=== PATIENT | female | born 1970 | race Caucasian/White ===

== ENCOUNTER 2018-12-18 23:14 | Emergency (ER) | payer OTHER ==
[~2018-12-18] VITALS: Ht 165.1 cm; Wt 54.4 kg
--- NOTE | 2018-12-18 23:32 | NUR ---
Female rn anesthesiology, Sandy Mcgrath RN sup, accompanied Dr. Lira for female patient pelvic exam.
[2018-12-18] MEDS ORDERED: ONDANSETRON ODT 4 MG TAB.RAPDIS SL ONE (23:45)
[2018-12-18] MEDS ORDERED: OXYCODONE/APAP 5-325 MG TABLET PO ONE (23:45)
[2018-12-18] MEDS ORDERED: ONDANSETRON ODT 4 MG TAB.RAPDIS ONE (23:46)
[2018-12-18] MEDS ORDERED: OXYCODONE/APAP 5-325 MG TABLET ONE (23:47)
[2018-12-19] MEDS ORDERED: AZITHROMYCIN 250 MG TABLET PO ONE
[2018-12-19] MEDS ORDERED: AZITHROMYCIN 250 MG TABLET ONE (00:03)
[2018-12-19 00:40] LABS: *BILIRUBIN,URIN NEGATIVE (NEGATIVE); *BLOOD, URINE 2+ (NEGATIVE); *CLARITY,URINE CLEAR (CLEAR); *COLOR,URINE YELLOW (YELLOW); *KETONES,URINE NEGATIVE (NEGATIVE); LEUKOCYTE ESTERASE ,URINE NEGATIVE (NEGATIVE); NITRITE, URINE NEGATIVE (NEGATIVE); PH,URINE 6.5 (5.0-8.0); UGLUCOSE NEGATIVE (NEGATIVE)
[2018-12-19 00:41] LABS: BACTERIA,URINE NONE SEEN /HPF (NONE SEEN); WBC,URINE 0-3 /HPF (0-3)
[2018-12-19 00:42] LABS: *URINE HCG, QUAL NEGATIVE (NEGATIVE); SQUAMOUS EPITHELIAL CELL,UR FEW /HPF (NONE SEEN); URINE AMORPHOUS URATE FEW /HPF
--- NOTE | 2018-12-19 00:50 | NUR ---
Patient discharged to home in stable conditon. Written and verbal after care instructions given. Patient verbalizes understanding of instructions. Patient ambulated with stable gait.
[2018-12-19 00:52] VITALS: BP 112/75
== END 2018-12-19 01:19 | disposition home or self-care (01) ==
LOC: ER 23:14
DX: R10.2 Pelvic and perineal pain (principal); N34.2 Other urethritis; F17.290 Nicotine dependence, other tobacco product, uncomplicated; F12.10 Cannabis abuse, uncomplicated; Z71.6 Tobacco abuse counseling
CPT/HCPCS: 84703; 87210; A4663; Q0144; Q0162

== ENCOUNTER 2019-03-29 15:40 | Emergency (ER) | payer OTHER ==
[~2019-03-29] VITALS: Ht 165.1 cm; Wt 56.7 kg
[2019-03-29] MEDS ORDERED: MORPHINE SULFATE 2 MG/1 ML DISP.SYRIN IV ONE (16:30)
[2019-03-29] MEDS ORDERED: KETOROLAC TROMETHAMINE 30 MG INJ IVP ONE (16:30)
[2019-03-29] MEDS ORDERED: IV NORMAL SALINE 1000 ML BAG IV ONE (16:30)
[2019-03-29] MEDS ORDERED: MORPHINE SULFATE 2 MG/1 ML DISP.SYRIN ONE (16:37)
[2019-03-29] MEDS ORDERED: KETOROLAC TROMETHAMINE 30 MG INJ ONE (16:37)
[2019-03-29 16:44] LABS: *BILIRUBIN,URIN NEGATIVE (NEGATIVE); *BLOOD, URINE NEGATIVE (NEGATIVE); *COLOR,URINE YELLOW (YELLOW); *KETONES,URINE NEGATIVE (NEGATIVE); LEUKOCYTE ESTERASE ,URINE 2+ (NEGATIVE); NITRITE, URINE NEGATIVE (NEGATIVE); UGLUCOSE NEGATIVE (NEGATIVE)
[2019-03-29 16:45] LABS: *URINE HCG, QUAL NEGATIVE (NEGATIVE); BASOPHILS # (AUTO) 0.1 K/uL (0.0-8.0); BASOPHILS % (AUTO) 0.6 % (0.0-2.0); EOSINOPHILS # (AUTO) 0.2 K/uL (0.0-0.7); EOSINOPHILS % (AUTO) 1.4 % (0.0-7.0); HEMATOCRIT 41.7 % (31.2-41.9); LYMPHOCYTES # (AUTO) 2.2 K/uL (20.0-40.0); LYMPHOCYTES % (AUTO) 18.3 % (20.5-51.5); MEAN CORPUSCULAR HEMOGLOBIN 30.7 uug (24.7-32.8); MEAN CORPUSCULAR HGB CONC 34 g/dL (32.3-35.6); MEAN CORPUSCULAR VOLUME 91.4 fL (75.5-95.3); MONOCYTES # (AUTO) 1.4 K/uL (2.0-10.0); MONOCYTES % (AUTO) 11.9 % (0.0-11.0); NEUTROPHILS # (AUTO) 8.2 K/uL (1.8-8.9); NEUTROPHILS % (AUTO) 67.8 % (38.5-71.5); PLATELET COUNT (AUTO) 268 K/uL (179-408); RED BLOOD CELL COUNT(AUTO) 4.57 MIL/uL (3.63-4.92)
[2019-03-29 16:48] LABS: *CLARITY,URINE HAZY (CLEAR)
[2019-03-29 16:59] LABS: CREATININE 0.7 mg/dL (0.6-1.3); POTASSIUM 3.6 mmol/L (3.5-5.1)
[2019-03-29 17:05] LABS: BILIRUBIN,DIRECT 0.2 mg/dL (0.0-0.2); BILIRUBIN,TOTAL 0.6 mg/dL (0.2-1.0); TOTAL PROTEIN, SERUM 7.2 g/dL (6.4-8.2)
[2019-03-29 17:07] LABS: *AMPHETAMINE, URINE POSITIVE (NEGATIVE); *BARBITURATE, URINE NEGATIVE (NEGATIVE); *CANNABINOID, URINE NEGATIVE (NEGATIVE); *COCCAINE, URINE NEGATIVE (NEGATIVE); *OPIATE, URINE NEGATIVE (NEGATIVE); *PHENCYCLIDINE SCREEN,URINE NEGATIVE (NEGATIVE)
--- NOTE | 2019-03-29 17:10 | NUR ---
1st contact with patient, sleeping but easily arousable, AOx4 when awake, calm, some relief with abdominal pains, still for results & disposition
[2019-03-29 17:12] LABS: BACTERIA,URINE MODERATE /HPF (NONE SEEN); RBC,URINE 0-3 /HPF (0-3); SQUAMOUS EPITHELIAL CELL,UR FEW /HPF (NONE SEEN)
[2019-03-29] MEDS ORDERED: IV NORMAL SALINE 250 ML IV ONE (17:32)
[2019-03-29] MEDS ORDERED: IOHEXOL 300MG/ML 100 ML INFUS..BTL ONE (17:32)
[2019-03-29] MEDS ORDERED: SWABABLE VALVE TRANSFER SET EA MC ONE (17:32)
--- NOTE | 2019-03-29 18:16 | NUR ---
Patient is resting comfortably in bed with eyes closed, NAD.
--- NOTE | 2019-03-29 18:39 | NUR ---
Patient is back from CT scan in same condition, pending results & disposition, NAD.
[2019-03-29] MEDS ORDERED: FENTANYL CITRATE 100 MCG/2 ML AMPUL IV ONE (19:45)
[2019-03-29] MEDS ORDERED: FENTANYL CITRATE 100 MCG/2 ML AMPUL ONE (20:05)
[2019-03-29] MEDS ORDERED: CEFTRIAXONE 500 MG VIAL IM ONE (20:15)
[2019-03-29] MEDS ORDERED: DOXYCYCLINE HYCLATE 100 MG TABLET PO ONE (20:15)
[2019-03-29] MEDS ORDERED: DOXYCYCLINE HYCLATE 100 MG TABLET ONE (20:23)
[2019-03-29] MEDS ORDERED: LIDOCAINE HCL 1% 20 ML VIAL ONE (20:23)
[2019-03-29] MEDS ORDERED: CEFTRIAXONE 500 MG VIAL ONE (20:24)
--- NOTE | 2019-03-29 21:44 | NUR ---
IV removed. Catheter intact and site benign. Pressure and 4x4 gauze applied to site. No bleeding noted.
[2019-03-29 21:50] VITALS: BP 130/77
--- NOTE | 2019-03-29 21:58 | NUR ---
Patient discharged to home in stable conditon. Written and verbal after care instructions given. Patient verbalizes understanding of instructions.
== END 2019-03-29 22:12 | disposition home or self-care (01) ==
LOC: ER 15:41
DX: N73.9 Female pelvic inflammatory disease, unspecified (principal); F15.10 Other stimulant abuse, uncomplicated; F17.200 Nicotine dependence, unspecified, uncomplicated
CPT/HCPCS: 36415; 74177; 76856; 80048; 80076; 80307; 81000; 81001; 83690; 84703; 85025; 87086; 87210; 87491; 96361; 96372; 96374; 96375; 99284; J0696; J1885; J2270; J3010; J3490; Q9967; A4663; J7030; J7050

== ENCOUNTER 2019-07-07 16:52 | Emergency (ER) | payer OTHER ==
[~2019-07-07] VITALS: Ht 165.1 cm; Wt 56.7 kg
[2019-07-07] MEDS ORDERED: LET TOPICAL SOLUTION 8 ML UDC TP ONE (17:30)
[2019-07-07] MEDS ORDERED: SODIUM BICARBONATE 4.2 % (NEUT) 5 ML VIAL TP ONE (17:30)
[2019-07-07] MEDS ORDERED: ONDANSETRON 4 MG/2 ML VIAL IV ONE (17:30)
[2019-07-07] MEDS ORDERED: MORPHINE SULFATE 4 MG/1 ML DISP.SYRIN IV ONE ×2 (17:30→18:15)
[2019-07-07] MEDS ORDERED: VANCOMYCIN IV 1,000 MG in IV DEXTROSE 5% 250 ML IV ONE (17:30)
[2019-07-07] MEDS ORDERED: LIDOCAINE HCL 2% 20 ML VIAL TP ONE (17:30)
[2019-07-07] MEDS ORDERED: ONDANSETRON 4 MG/2 ML VIAL ONE (17:38)
[2019-07-07] MEDS ORDERED: SODIUM BICARBONATE 4.2 % (NEUT) 5 ML VIAL ONE (17:38)
[2019-07-07] MEDS ORDERED: LIDOCAINE HCL 2% 20 ML VIAL ONE (17:38)
[2019-07-07] MEDS ORDERED: MORPHINE SULFATE 4 MG/1 ML DISP.SYRIN ONE ×2 (17:39→18:21)
[2019-07-07] MEDS ORDERED: VANCOMYCIN IV 200 ML ONE (17:39)
[2019-07-07] MEDS ORDERED: LET TOPICAL SOLUTION 8 ML UDC ONE (17:46)
--- NOTE | 2019-07-07 19:04 | NUR ---
PT WAS EVALUATED BY DR PATRICK. I&D PROCEDURE WAS PERFORMED BY DR PATRICK. PT TOLERATED TO PROCEDURE WITHOUT COMPLICATIONS. PT WAS D/C'D TO HOME. D/C INSTRUCTIONS GIVEN TO THE PT.
--- NOTE | 2019-07-07 19:07 | NUR ---
REPORT WAS GIVEN TO SENIOR CYTOGENETIC TECHNOLOGISTCHECKOUT OPERATOR.
--- NOTE | 2019-07-07 19:30 | NUR ---
Vancomycin done infusing at 1930. No ASE noted
--- NOTE | 2019-07-07 19:35 | NUR ---
Patient discharged to home in stable conditon. Written and verbal after care instructions given. Patient verbalizes understanding of instructions. Patient ambulating with steady gait. IV removed. Catheter intact and site benign. Pressure and 4x4 gauze applied to site. No bleeding noted.
[2019-07-07 19:46] VITALS: BP 133/74
== END 2019-07-07 19:35 | disposition home or self-care (01) ==
LOC: ER 16:54
DX: L03.115 Cellulitis of right lower limb (principal); L02.415 Cutaneous abscess of right lower limb; F17.200 Nicotine dependence, unspecified, uncomplicated; Z88.2 Allergy status to sulfonamides; Z88.8 Allergy status to other drugs, medicaments and biological substances; Z79.899 Other long term (current) drug therapy
CPT/HCPCS: 10060; 96365; 96366; 96375; 96376; 99284; J2270 ×2; J2405; J3370; J3490 ×2; A4663

== ENCOUNTER 2019-07-09 02:25 | Emergency (ER) | payer OTHER ==
[~2019-07-09] VITALS: Ht 165.1 cm; Wt 56.7 kg
--- NOTE | 2019-07-09 02:35 | NUR ---
PATIENT WAS MSE BY DR PATRICK IN ROOM 04B. PATIENT A & O X4.
[2019-07-09] MEDS ORDERED: diphenhydrAMINE 50 MG CAPSULE PO ONE (02:45)
[2019-07-09] MEDS ORDERED: predniSONE 20 MG TABLET PO ONE (02:45)
[2019-07-09] MEDS ORDERED: FAMOTIDINE 20 MG TABLET PO ONE (02:45)
[2019-07-09] MEDS ORDERED: diphenhydrAMINE 50 MG CAPSULE ONE (03:05)
[2019-07-09] MEDS ORDERED: predniSONE 20 MG TABLET ONE (03:05)
[2019-07-09] MEDS ORDERED: FAMOTIDINE 20 MG TABLET ONE (03:05)
[2019-07-09] MEDS ORDERED: FLUCONAZOLE 100 MG TABLET ONE (03:26)
[2019-07-09] MEDS ORDERED: FLUCONAZOLE 100 MG TABLET PO ONE (03:30)
[2019-07-09 03:34] VITALS: BP 102/61
--- NOTE | 2019-07-09 03:42 | NUR ---
Patient discharged to home in stable condition. Written and verbal after care instructions given. Patient verbalizes understanding of instructions.
== END 2019-07-09 03:44 | disposition home or self-care (01) ==
LOC: ER 02:25
DX: B37.3 Candidiasis of vulva and vagina (principal); L03.114 Cellulitis of left upper limb; F17.200 Nicotine dependence, unspecified, uncomplicated; Z88.2 Allergy status to sulfonamides; Z88.8 Allergy status to other drugs, medicaments and biological substances; Z79.899 Other long term (current) drug therapy
CPT/HCPCS: 99284; J7512; Q0163; A4663

== ENCOUNTER 2020-08-04 17:52 | Inpatient (IN) | payer OTHER ==
[~2020-08-04] VITALS: Ht 165.1 cm; Wt 56.7 kg
[~2020-08-04 17:52] MED LIST: SULF1TAB48 PO
--- NOTE | 2020-08-04 18:48 | NUR ---
Provided patient with blanket and IV started with labs.
--- NOTE | 2020-08-04 18:52 | NUR ---
Dr Brewster at bedside for MSE.
[2020-08-04 19:10] LABS: BASOPHILS % (AUTO) 0.3 % (0.0-2.0); EOSINOPHILS # (AUTO) 0.1 K/uL (0.0-0.7); EOSINOPHILS % (AUTO) 0.9 % (0.0-7.0); HEMATOCRIT 38.1 % (31.2-41.9); LYMPHOCYTES # (AUTO) 1.9 K/uL (20.0-40.0); LYMPHOCYTES % (AUTO) 12.7 % (20.5-51.5); MEAN CORPUSCULAR HEMOGLOBIN 30.3 uug (24.7-32.8); MEAN CORPUSCULAR HGB CONC 34 g/dL (32.3-35.6); MEAN CORPUSCULAR VOLUME 88.6 fL (75.5-95.3); MONOCYTES # (AUTO) 1.4 K/uL (2.0-10.0); MONOCYTES % (AUTO) 9.3 % (0.0-11.0); NEUTROPHILS # (AUTO) 11.5 K/uL (1.8-8.9); NEUTROPHILS % (AUTO) 76.8 % (38.5-71.5); PLATELET COUNT (AUTO) 275 K/uL (179-408); WHITE BLOOD COUNT (AUTO) 14.9 K/uL (3.8-11.8)
[2020-08-04 19:13] LABS: CREATININE 0.8 mg/dL (0.6-1.3); POTASSIUM 3.5 mmol/L (3.5-5.1)
[2020-08-04] MEDS ORDERED: PIPERACILLIN/TAZOBACTAM/D5W 50 ML IV ONE (19:15)
[2020-08-04] MEDS ORDERED: VANCOMYCIN IV 200 ML ONE (19:15)
[2020-08-04] MEDS ORDERED: VANCOMYCIN IV 1,000 MG in IV DEXTROSE 5% 250 ML IV ONE (19:15)
[2020-08-04] MEDS ORDERED: PIPERACILLIN SODIUM/TAZOBACTAM 3.375 G in IV DEXTROSE 5% 50 ML IV ONE (19:15)
--- NOTE | 2020-08-04 20:12 | NUR ---
Dr. Loving on panel call with Ger Johnston NP.
--- NOTE | 2020-08-04 20:12 | NUR ---
Patient complaining of 10/10 pain. MD Moon made aware. Pending new orders.
--- NOTE | 2020-08-04 20:22 | NUR ---
Patient will be going to room med-surg 315.
[2020-08-04] MEDS ORDERED: HYDROMORPHONE 1 MG/1 ML DISP.SYRIN IV ONE (20:30)
--- NOTE | 2020-08-04 20:30 | NUR ---
20g R AC access no longer viable. Replaced with 20g R forearm.
[2020-08-04] MEDS ORDERED: HYDROMORPHONE 1 MG/1 ML DISP.SYRIN ONE (20:32)
--- NOTE | 2020-08-04 20:57 | NUR ---
VALERIE Clinton received report of patient. VALERIE Akins will be receiving the patient.
--- NOTE | 2020-08-04 21:30 | NUR ---
Pt. admitted to med-surg 315, under care of PORTFOLIO ACCOUNTANT Ger Johnston. Belongs List completed.
[2020-08-04] MEDS ORDERED: ONDANSETRON 4 MG/2 ML VIAL IV PRN (22:00)
[2020-08-04] MEDS ORDERED: TEMAZEPAM 15 MG CAPSULE PO PRN (22:00)
[2020-08-04] MEDS ORDERED: MAGNESIUM HYDROXIDE 30 ML LIQUID UDC PO PRN (22:00)
--- NOTE | 2020-08-04 22:00 | NUR ---
Received patient awake and alert from ER via a gurney. Photos taken of left hand-4th digit cellulitis. No signs of distress noted, patient kept comfortable. IV 20G right forearm running NS at 10mls/hr patent and intact. Will continue to monitor.
[2020-08-04 22:57] VITALS: BP 127/75
[2020-08-05] MEDS ORDERED: PIPERACILLIN/TAZOBACTAM/D5W 100 ML IV ONE (00:08)
[2020-08-05] MEDS: PIPERACILLIN SODIUM/TAZOBACTAM 3.375 G in IV DEXTROSE 5% 50 ML IV SCH ×5 (00:15→23:41)
[2020-08-05 04:33] VITALS: BP 131/73
[2020-08-05] MEDS: PANTOPRAZOLE SODIUM 40 MG TABLET.DR PO SCH (06:02)
[2020-08-05] MEDS: MORPHINE SULFATE 2 MG/1 ML DISP.SYRIN IV PRN (06:15)
[2020-08-05 06:51] LABS: BASOPHILS % (AUTO) 0.3 % (0.0-2.0); EOSINOPHILS # (AUTO) 0.2 K/uL (0.0-0.7); EOSINOPHILS % (AUTO) 1.4 % (0.0-7.0); HEMATOCRIT 40.8 % (31.2-41.9); HEMOGLOBIN 13.7 g/dL (10.9-14.3); LYMPHOCYTES # (AUTO) 2.3 K/uL (20.0-40.0); LYMPHOCYTES % (AUTO) 17.3 % (20.5-51.5); MEAN CORPUSCULAR HEMOGLOBIN 30.1 uug (24.7-32.8); MEAN CORPUSCULAR HGB CONC 34 g/dL (32.3-35.6); MEAN CORPUSCULAR VOLUME 89.3 fL (75.5-95.3); MONOCYTES # (AUTO) 1.2 K/uL (2.0-10.0); MONOCYTES % (AUTO) 9.2 % (0.0-11.0); NEUTROPHILS # (AUTO) 9.7 K/uL (1.8-8.9); NEUTROPHILS % (AUTO) 71.8 % (38.5-71.5); PLATELET COUNT (AUTO) 297 K/uL (179-408); RED BLOOD CELL COUNT(AUTO) 4.56 MIL/uL (3.63-4.92); WHITE BLOOD COUNT (AUTO) 13.5 K/uL (3.8-11.8)
--- NOTE | 2020-08-05 07:00 | NUR ---
End of Shift: Patient slept most of the night, no signs of distress. Patient is on RA sating at 97%, VSS. Call light within reach, bed is in low locked position, will endorse to the oncoming morning shift nurse.
[2020-08-05 07:25] LABS: CREATININE 0.7 mg/dL (0.6-1.3); POTASSIUM 3.8 mmol/L (3.5-5.1)
[2020-08-05 08:00] VITALS: BP 110/61
[2020-08-05] MEDS: VANCOMYCIN IV 750 MG in IV DEXTROSE 5% 250 ML IV SCH ×2 (08:55→21:03)
[2020-08-05] MEDS: HYDROCODONE/APAP 5-325MG TABLET PO PRN ×2 (08:56→22:02)
[2020-08-05 10:05] LABS: MAGNESIUM 1.9 mg/dL (1.8-2.4); URIC ACID 2.2 mg/dL (2.6-6.0)
[2020-08-05 10:31] LABS: THYROID STIMULATING HORMONE 1.053 mIU/mL (0.358-3.740)
--- NOTE | 2020-08-05 12:06 | NUR ---
WOUND CARE CONSULT: PT PRESENTS WITH LEFT 4TH FINGER SWELLING REDNESS, DRAINAGE AND YELLOW COLOR, PRESENT ON ADMISSION. RECOMMEND SURGICAL CONSULT. DR KEENAN NOTIFIED OF CONSULT REQUEST. MD IN AGREEMENT WITH PLAN OF CARE.
[2020-08-05] MEDS ORDERED: LIDOCAINE 1%-EPI 1:200,000 MPF 30 ML VIAL IJ ONE (13:15)
[2020-08-05 14:43] LABS: *URINE HCG, QUAL NEGATIVE (NEGATIVE)
--- NOTE | 2020-08-05 15:36 | NUR ---
Received pt in bed, A&Ox4, able to verbalize needs. No acute distress noted. Due medications given per order, pt tolerated well, no a/r noted. Pt reported pain of 9/10 on adult scale this am, PRN [place] given per order, effective. R FA IV patent and intact. L hand noted with red, warm to touch, edematous. SARAH Cyr Walk at bedside this afternoon for sharp excisional debridement procedure of left ring finger. Pt tolerated well. VSS at this time. Call light and belongings in reach. Will continue to monitor.
[2020-08-05 16:26] VITALS: BP 105/58
[2020-08-05] MEDS: ACETAMINOPHEN 325 MG TABLET PO PRN (18:32)
--- NOTE | 2020-08-05 19:27 | NUR ---
EOSS: Pt resting in bed, no acute distress. Due medications given per order, no a/r noted. Pt able to verbalize needs during shift, needs met promptly. R FA IV patent and intact. Will endorse care to mine shifter nurse.
--- NOTE | 2020-08-05 20:05 | NUR ---
RECEIVED PATIENT ASLEEP IN BED. EASILY AROUSABLE. A/O X4. NO RESP. DISTRESS NOTED. VS WNL. CALL LIGHT IN REACH. ALL NEEDS ATTENDED. WILL CONTINUE TO MONITOR AND ASSESS.
[2020-08-05 20:27] VITALS: BP 120/65
[2020-08-06 04:39] VITALS: BP 105/60
[2020-08-06] MEDS: MORPHINE SULFATE 2 MG/1 ML DISP.SYRIN IV PRN ×4 (04:42→20:52)
[2020-08-06] MEDS: PIPERACILLIN SODIUM/TAZOBACTAM 3.375 G in IV DEXTROSE 5% 50 ML IV SCH ×4 (05:32→23:37)
[2020-08-06] MEDS: PANTOPRAZOLE SODIUM 40 MG TABLET.DR PO SCH (06:21)
[2020-08-06 06:30] LABS: BASOPHILS # (AUTO) 0.1 K/uL (0.0-8.0); BASOPHILS % (AUTO) 1.1 % (0.0-2.0); EOSINOPHILS # (AUTO) 0.3 K/uL (0.0-0.7); EOSINOPHILS % (AUTO) 3.4 % (0.0-7.0); HEMATOCRIT 41.2 % (31.2-41.9); HEMOGLOBIN 13.6 g/dL (10.9-14.3); LYMPHOCYTES # (AUTO) 2.5 K/uL (20.0-40.0); LYMPHOCYTES % (AUTO) 27.8 % (20.5-51.5); MEAN CORPUSCULAR HEMOGLOBIN 29.8 uug (24.7-32.8); MEAN CORPUSCULAR HGB CONC 33 g/dL (32.3-35.6); MEAN CORPUSCULAR VOLUME 90.3 fL (75.5-95.3); MONOCYTES # (AUTO) 1.1 K/uL (2.0-10.0); MONOCYTES % (AUTO) 12.2 % (0.0-11.0); NEUTROPHILS % (AUTO) 55.5 % (38.5-71.5); PLATELET COUNT (AUTO) 302 K/uL (179-408); RED BLOOD CELL COUNT(AUTO) 4.56 MIL/uL (3.63-4.92)
[2020-08-06 06:46] LABS: CREATININE 0.8 mg/dL (0.6-1.3); MAGNESIUM 2.2 mg/dL (1.8-2.4); PHOSPHOROUS 3.4 mg/dL (2.5-4.9); POTASSIUM 3.9 mmol/L (3.5-5.1)
[2020-08-06 07:03] LABS: WHITE BLOOD COUNT (AUTO) 9.1 K/uL (3.8-11.8)
--- NOTE | 2020-08-06 07:32 | NUR ---
Received pt in bed asleep. No facial grimacing. No respiratory distress. IV on left hand intact and patent. Dressing on left hand 4th finger in place. Patient is comfortable. Safety measures in place. Will continue to monitor.
[2020-08-06] MEDS: VANCOMYCIN IV 750 MG in IV DEXTROSE 5% 250 ML IV SCH ×2 (09:31→16:35)
[2020-08-06 11:30] VITALS: BP 117/71
[2020-08-06] MEDS ORDERED: LIDOCAINE 1%-EPI 1:200,000 MPF 30 ML VIAL IJ ONE (13:45)
[2020-08-06] MEDS: NICOTINE 14 MG/24HR PATCH TD SCH (14:20)
--- NOTE | 2020-08-06 14:49 | NUR ---
Ger Martínez PA here to see pt. Patient requested for debridement tomorrow instead. Dressing on left 4th finger changed by PA. Swelling improved. No drainage or foul smell. Patient premedicated beforehand. Will continue to monitor.
[2020-08-06] MEDS: ACETAMINOPHEN 325 MG TABLET PO PRN (14:58)
[2020-08-06 15:10] VITALS: BP 111/72
[2020-08-06] MEDS: HYDROCODONE/APAP 5-325MG TABLET PO PRN (18:37)
--- NOTE | 2020-08-06 19:15 | NUR ---
Patient alert and oriented x4. No respiratory distress. Pain management for left hand. On iv atb no adverse reaction noted. Needs attended. Kept comfortable.
--- NOTE | 2020-08-06 19:30 | NUR ---
Awake, sitting on top of her bed, watching TV, with left hand loose dressing, IVF infusing at TKO rate via pump on right hand IV site, no s/s of infiltration noted. Denies any pain at this time. Continue care as planned.
[2020-08-06 20:25] VITALS: BP 119/78
--- NOTE | 2020-08-06 21:10 | NUR ---
Wound and picture done on patient right ring finger wound. Complaint of severe pain after, medicated with Morphine as ordered and needed. Will monitor.
[2020-08-07] MEDS: VANCOMYCIN IV 750 MG in IV DEXTROSE 5% 250 ML IV SCH ×3 (00:22→17:46)
[2020-08-07 04:25] VITALS: BP 103/58
[2020-08-07] MEDS: PIPERACILLIN SODIUM/TAZOBACTAM 3.375 G in IV DEXTROSE 5% 50 ML IV SCH ×4 (05:28→23:25)
--- NOTE | 2020-08-07 05:40 | NUR ---
Shift End Report: Vs stable. Medicated once for pain. Slept well after taking Morphine medication. Continue on IV antibiotics without s/s of adverse reaction noted. All needs attended and met. No significant event reported. Continue current plan of care.
[2020-08-07] MEDS: PANTOPRAZOLE SODIUM 40 MG TABLET.DR PO SCH (06:22)
--- NOTE | 2020-08-07 07:00 | NUR ---
Patient report received from shift supervisor melting. Patient is alert and oriented x 4. She is resting in bed. Patient has cellulitis of her left fourth digit. On room air. Patient is ambulatory. Continent for GI/. She has an IV on right hand 22g. Patient scheduled for wound debridement for today. Patient denies pain at this time. No shortness of breath reported. Bed in low and locked position. Call light within reach. Safety precautions in place.
[2020-08-07 08:00] VITALS: BP 105/53
[2020-08-07 08:18] LABS: BASOPHILS # (AUTO) 0.1 K/uL (0.0-8.0); BASOPHILS % (AUTO) 1.4 % (0.0-2.0); CREATININE 0.8 mg/dL (0.6-1.3); EOSINOPHILS # (AUTO) 0.3 K/uL (0.0-0.7); EOSINOPHILS % (AUTO) 5.4 % (0.0-7.0); HEMATOCRIT 40.7 % (31.2-41.9); HEMOGLOBIN 14.1 g/dL (10.9-14.3); LYMPHOCYTES # (AUTO) 2.1 K/uL (20.0-40.0); LYMPHOCYTES % (AUTO) 33.5 % (20.5-51.5); MEAN CORPUSCULAR HEMOGLOBIN 30.8 uug (24.7-32.8); MEAN CORPUSCULAR HGB CONC 35 g/dL (32.3-35.6); MEAN CORPUSCULAR VOLUME 89.2 fL (75.5-95.3); MONOCYTES # (AUTO) 0.7 K/uL (2.0-10.0); MONOCYTES % (AUTO) 11.5 % (0.0-11.0); NEUTROPHILS % (AUTO) 48.2 % (38.5-71.5); PHOSPHOROUS 3.8 mg/dL (2.5-4.9); PLATELET COUNT (AUTO) 322 K/uL (179-408); POTASSIUM 4.3 mmol/L (3.5-5.1); RED BLOOD CELL COUNT(AUTO) 4.56 MIL/uL (3.63-4.92)
[2020-08-07 08:23] LABS: WHITE BLOOD COUNT (AUTO) 6.3 K/uL (3.8-11.8)
[2020-08-07] MEDS: MORPHINE SULFATE 2 MG/1 ML DISP.SYRIN IV PRN ×4 (08:27→23:25)
[2020-08-07] MEDS: HYDROCODONE/APAP 5-325MG TABLET PO PRN ×2 (10:11→20:40)
[2020-08-07] MEDS: NICOTINE 14 MG/24HR PATCH TD SCH (14:26)
[2020-08-07] MEDS ORDERED: LIDOCAINE 1%-EPI 1:100,000 20 ML VIAL IJ PRN (14:30)
[2020-08-07 16:26] VITALS: BP 106/68
--- NOTE | 2020-08-07 18:15 | NUR ---
Patient is in room with SARAH Martínez for debridement. Patient tolerated procedure well. Will continue to monitor.
--- NOTE | 2020-08-07 19:14 | NUR ---
Patient resting in bed. Alert and oriented x 4. No reports of pain or shortness of breath at this time. Patient tolerated wound debridement well. All medications given as ordered. Patient is stable. Midline placed on MANAV, for continued antibiotic administration. Safety precautions taken. Bed in low and locked position. Call light within reach.
[2020-08-07 20:20] VITALS: BP 148/99
--- NOTE | 2020-08-07 20:58 | NUR ---
pt wet her left hand dressing; dressing changed, xeroform intact from previous debridement; pt c/o pain, requested for [place] and given to pt.
[2020-08-08] MEDS: VANCOMYCIN IV 750 MG in IV DEXTROSE 5% 250 ML IV SCH ×3 (00:35→17:21)
[2020-08-08 04:20] VITALS: BP 120/72
[2020-08-08] MEDS: PIPERACILLIN SODIUM/TAZOBACTAM 3.375 G in IV DEXTROSE 5% 50 ML IV SCH ×4 (05:16→23:39)
[2020-08-08] MEDS: PANTOPRAZOLE SODIUM 40 MG TABLET.DR PO SCH (05:27)
[2020-08-08] MEDS: MORPHINE SULFATE 2 MG/1 ML DISP.SYRIN IV PRN ×2 (05:44→21:36)
--- NOTE | 2020-08-08 05:51 | NUR ---
Patient rested well in between care; administered antibiotics and tolerated well; medicated with morphine and norco for pain; assisted with needs; continue to monitor; continue plan of care.
[2020-08-08 06:55] LABS: BASOPHILS # (AUTO) 0.1 K/uL (0.0-8.0); BASOPHILS % (AUTO) 1.3 % (0.0-2.0); EOSINOPHILS # (AUTO) 0.3 K/uL (0.0-0.7); EOSINOPHILS % (AUTO) 5.8 % (0.0-7.0); HEMATOCRIT 40.3 % (31.2-41.9); HEMOGLOBIN 13.6 g/dL (10.9-14.3); LYMPHOCYTES # (AUTO) 2.1 K/uL (20.0-40.0); MEAN CORPUSCULAR HEMOGLOBIN 30.2 uug (24.7-32.8); MEAN CORPUSCULAR HGB CONC 34 g/dL (32.3-35.6); MEAN CORPUSCULAR VOLUME 89.3 fL (75.5-95.3); MONOCYTES # (AUTO) 0.7 K/uL (2.0-10.0); MONOCYTES % (AUTO) 12.2 % (0.0-11.0); NEUTROPHILS # (AUTO) 2.8 K/uL (1.8-8.9); NEUTROPHILS % (AUTO) 45.7 % (38.5-71.5); PLATELET COUNT (AUTO) 350 K/uL (179-408); RED BLOOD CELL COUNT(AUTO) 4.51 MIL/uL (3.63-4.92)
[2020-08-08 07:02] LABS: CREATININE 0.8 mg/dL (0.6-1.3); POTASSIUM 4.1 mmol/L (3.5-5.1)
[2020-08-08 08:36] VITALS: BP 122/69
[2020-08-08] MEDS: NICOTINE 14 MG/24HR PATCH TD SCH (09:43)
[2020-08-08 11:28] VITALS: BP 143/74
[2020-08-08] MEDS: HYDROCODONE/APAP 5-325MG TABLET PO PRN ×3 (14:28→22:49)
[2020-08-08 15:30] VITALS: BP 136/83
[2020-08-08] MEDS: ACETAMINOPHEN 325 MG TABLET PO PRN (17:43)
[2020-08-08 20:20] VITALS: BP 122/73
[2020-08-09] MEDS: VANCOMYCIN IV 750 MG in IV DEXTROSE 5% 250 ML IV SCH (00:48)
[2020-08-09 04:25] VITALS: BP 115/66
[2020-08-09] MEDS: PIPERACILLIN SODIUM/TAZOBACTAM 3.375 G in IV DEXTROSE 5% 50 ML IV SCH (05:09)
[2020-08-09 06:11] LABS: BASOPHILS # (AUTO) 0.1 K/uL (0.0-8.0); EOSINOPHILS # (AUTO) 0.4 K/uL (0.0-0.7); EOSINOPHILS % (AUTO) 6.4 % (0.0-7.0); HEMOGLOBIN 13.2 g/dL (10.9-14.3); LYMPHOCYTES # (AUTO) 2.2 K/uL (20.0-40.0); LYMPHOCYTES % (AUTO) 37.7 % (20.5-51.5); MEAN CORPUSCULAR HGB CONC 34 g/dL (32.3-35.6); MEAN CORPUSCULAR VOLUME 88.5 fL (75.5-95.3); MONOCYTES # (AUTO) 0.8 K/uL (2.0-10.0); MONOCYTES % (AUTO) 14.7 % (0.0-11.0); NEUTROPHILS # (AUTO) 2.3 K/uL (1.8-8.9); NEUTROPHILS % (AUTO) 39.2 % (38.5-71.5); PLATELET COUNT (AUTO) 339 K/uL (179-408); RED BLOOD CELL COUNT(AUTO) 4.41 MIL/uL (3.63-4.92); WHITE BLOOD COUNT (AUTO) 5.7 K/uL (3.8-11.8)
[2020-08-09 06:19] LABS: CREATININE 0.7 mg/dL (0.6-1.3); POTASSIUM 3.9 mmol/L (3.5-5.1)
[2020-08-09] MEDS: PANTOPRAZOLE SODIUM 40 MG TABLET.DR PO SCH ×2 (06:52→06:58)
[2020-08-09] MEDS: ACETAMINOPHEN 325 MG TABLET PO PRN (06:52)
[2020-08-09] MEDS: NICOTINE 14 MG/24HR PATCH TD SCH (08:06)
[2020-08-09] MEDS ORDERED: VANCOMYCIN IV 1,000 MG in IV DEXTROSE 5% 250 ML IV SCH (15:00)
[2020-08-09] MEDS ORDERED: CLIN300C12 PO (15:39)
[2020-08-09] MEDS ORDERED: HYDR-3972 PO ×2 (15:39→17:25)
[2020-08-09] MEDS ORDERED: NICO1PAT44 TP (15:39)
--- NOTE | 2020-08-09 16:00 | NUR ---
wound dressing change per md orders
--- NOTE | 2020-08-09 16:23 | NUR ---
dc orders received noted and carried out,dc midline per md orders,dc instruction and education given to the pt pt said she will follow up with her pcp in one week.pt left the facility via private car in stable condition
[2020-08-09] MEDS ORDERED: HYDR-4209 PO (20:48)
== END 2020-08-09 16:35 | disposition home or self-care (01) | DRG 364 ==
LOC: ER 17:52 → MEDSURG3 21:17
PROVIDERS: ADMIT Internal Medicine; ATTEND Hospitalist
PROC: 0KBD0ZZ Excision of Left Hand Muscle, Open Approach (ICD-10-PCS; principal; 2020-08-05)
PROC: B547ZZA Ultrasonography of Left Subclavian Vein, Guidance (ICD-10-PCS; 2020-08-07)
PROC: 0KBD0ZZ Excision of Left Hand Muscle, Open Approach (ICD-10-PCS; 2020-08-07)
PROC: 05H633Z Insertion of Infusion Device into Left Subclavian Vein, Percutaneous Approach (ICD-10-PCS; 2020-08-07)
DX: L03.012 Cellulitis of left finger (principal); E87.1 Hypo-osmolality and hyponatremia; Z20.822 Contact with and (suspected) exposure to COVID-19; F17.210 Nicotine dependence, cigarettes, uncomplicated; B95.62 Methicillin resistant Staphylococcus aureus infection as the cause of diseases classified elsewhere; Z16.19 Resistance to other specified beta lactam antibiotics; S61.215A Laceration without foreign body of left ring finger without damage to nail, initial encounter; Y93.G1 Activity, food preparation and clean up; W25.XXXA Contact with sharp glass, initial encounter; Y92.009 Unspecified place in unspecified non-institutional (private) residence as the place of occurrence of the external cause; Y99.8 Other external cause status; R73.9 Hyperglycemia, unspecified; Z71.6 Tobacco abuse counseling; F19.11 Other psychoactive substance abuse, in remission
CPT/HCPCS: 36415; 71045; 73140; 82533; 83735; 83935; 84100; 84300; 84443; 84550; 84703; 85025; 85730; 87070; 87077; 93005; A4217; A4663; G0378; J1170; J2270; J2543; J3370; J3490; J7040; J7060

== ENCOUNTER 2020-08-09 20:45 | Emergency (ER) | payer OTHER ==
[~2020-08-09] VITALS: Ht 165.1 cm; Wt 56.7 kg
[~2020-08-09 20:45] MED LIST changes: +CLIN300C12 PO; +HYDR-3972 PO; +NICO1PAT44 TP
[2020-08-09] MEDS ORDERED: HYDR-4209 PO (20:48)
--- NOTE | 2020-08-09 20:50 | NUR ---
Dr. Lane at bedside for MSE.
--- NOTE | 2020-08-09 20:53 | NUR ---
Patient discharged to home in stable condition. Written and verbal after care instructions given. Patient verbalizes understanding of instructions. Stressed follow up or return to ER for worsening s/s. Patient out of ER with steady gait, no acute signs of distress, VSS, all belongings taken.
[2020-08-09 20:54] VITALS: BP 147/103
== END 2020-08-09 20:54 | disposition home or self-care (01) ==
LOC: ER 20:45
DX: L03.012 Cellulitis of left finger (principal); Z76.0 Encounter for issue of repeat prescription
CPT/HCPCS: A4663